=== PATIENT | male | born 1935 | race Caucasian/White ===

== ENCOUNTER 2017-07-23 10:14 | Emergency (ER) | payer MEDICARE, OTHER ==
[2017-07-23 10:21] VITALS: TEMP 98.4
[2017-07-23] MEDS ORDERED: DILTIAZEM 5 MG/ML SOL IV ONE ×2 (10:29)
[2017-07-23] MEDS ORDERED: ALUMINUM/MAGNESIUM 30 ML SUS ONE (10:45)
[2017-07-23] MEDS ORDERED: SODIUM CHLORIDE 0.9% 1000ML 1,000 ML IV SCH (10:45)
[2017-07-23] MEDS ORDERED: LIDOCAINE HCL 2% (VISCOUS) 20 ML SOL ONE (10:45)
[2017-07-23] MEDS ORDERED: ASPIRIN 81 MG CHEWABLE CTB ONE (10:46)
[2017-07-23] MEDS ORDERED: ASPIRIN 81 MG CHEWABLE CTB PO ONE (10:46)
[2017-07-23 10:50] LABS: BASOPHILS % (AUTO) 1 % (0-3); EOSINOPHILS % (AUTO) 2 % (0-9); HEMATOCRIT 39 % (39-53); MEAN CORPUSCULAR HGB CONC 31.9 gm/dl (32.0-36.0); MONOCYTES % (AUTO) 6.7 % (0-12); NEUTROPHILS % (AUTO) 75.6 % (37-80)
[2017-07-23 10:53] LABS: CALCIUM 8.8 mg/dl (8.5-10.1); MAGNESIUM 1.8 mg/dl (1.8-2.4); POTASSIUM 3.8 mMol/L (3.5-5.1)
[2017-07-23] MEDS ORDERED: LIDOCAINE HCL 2% (VISCOUS) 20 ML SOL MT ONE (10:53)
[2017-07-23] MEDS ORDERED: ALUMINUM/MAGNESIUM 30 ML SUS PO ONE (10:54)
[2017-07-23 11:14] LABS: MEAN CORPUSCULAR VOLUME 71 fL (80-100)
[2017-07-23 11:44] LABS: OVALOCYTES PRESENT
[2017-07-23] MEDS ORDERED: HEPARIN PREMIX 25,000 U/250 ML SOL IV PRN (14:33)
[2017-07-23] MEDS ORDERED: NITROGLYCERIN 5 MG/ML 50 MG in DEXTROSE 250 ML 250 ML IV PRN (14:34)
[2017-07-23] MEDS ORDERED: HEPARIN SODIUM 5000 U/ML SOL IV ONE (14:38)
[2017-07-23] MEDS ORDERED: HEPARIN SODIUM 5000 U/ML SOL ONE (14:39)
[2017-07-23 15:36] VITALS: RESP 19; O2SAT 97
[2017-07-23 15:37] VITALS: BP 123/75; PULSE 52
== END 2017-07-23 16:02 | disposition short-term general hospital (02) | DRG 313 ==
LOC: ED 10:14
DX: R07.9 Chest pain, unspecified (principal); I48.2 Chronic atrial fibrillation; R79.89 Other specified abnormal findings of blood chemistry; R06.02 Shortness of breath
CPT/HCPCS: 71010; 80048; 83735; 83880; 84484; 85025; 85610; 93005; 99285; J1644

== ENCOUNTER 2017-08-14 02:27 | Emergency (ER) | payer MEDICARE, OTHER ==
[2017-08-14] MEDS ORDERED: ASPIRIN 81 MG CHEWABLE CTB PO STA (02:30)
[2017-08-14] MEDS ORDERED: NITROGLYCERIN 0.4 MG TAB SL PRN (02:30)
[2017-08-14] MEDS ORDERED: ASPIRIN 81 MG CHEWABLE CTB ONE (02:31)
[2017-08-14] MEDS: SODIUM CHLORIDE 0.9% FLUSH 10 ML SOL IV PRN ×2 (02:40→03:34)
[2017-08-14 02:51] VITALS: TEMP 98
[2017-08-14 02:51] LABS: BASOPHILS % (AUTO) 1 % (0-3); EOSINOPHILS % (AUTO) 5 % (0-9); HEMATOCRIT 39 % (39-53); MEAN CORPUSCULAR HGB CONC 30.8 gm/dl (32.0-36.0); MONOCYTES % (AUTO) 8.8 % (0-12); NEUTROPHILS % (AUTO) 59.5 % (37-80)
[2017-08-14] MEDS ORDERED: DILTIAZEM 5 MG/ML SOL IV ONE ×2 (02:52→02:55)
[2017-08-14 02:57] LABS: MEAN CORPUSCULAR VOLUME 74 fL (80-100)
[2017-08-14 03:04] LABS: CALCIUM 9.4 mg/dl (8.5-10.1); GLOM FILT RATE 68 mL/min (>60); POTASSIUM 4.1 mMol/L (3.5-5.1); SODIUM 138 mMol/L (136-145)
[2017-08-14 03:09] LABS: ANISOCYTOSIS SLIGHT AMT; OVALOCYTES PRESENT; TARGET CELLS PRESENT
[2017-08-14] MEDS ORDERED: MORPHINE SULFATE 10 MG/ML SOL IV ONE (03:27)
[2017-08-14] MEDS ORDERED: MORPHINE SULFATE 10 MG/ML SOL ONE (03:28)
[2017-08-14] MEDS ORDERED: DILTIAZEM ER 120 MG C24 ONE (03:29)
[2017-08-14] MEDS ORDERED: DILTIAZEM ER 120 MG C24 PO ONE (03:31)
[2017-08-14 04:24] VITALS: BP 137/70; PULSE 111; RESP 18; O2SAT 95
[2017-08-14 14:41] LABS: ALBUMIN 3.9 gm/dl (3.4-5.0); BILIRUBIN,DIRECT 0.1 mg/dl (0.0-0.2)
== END 2017-08-14 04:48 | disposition home or self-care (01) | DRG 313 ==
LOC: ED 02:27
DX: R07.9 Chest pain, unspecified (principal); I48.91 Unspecified atrial fibrillation
CPT/HCPCS: 36415; 71010; 80048; 80076; 82550; 84484; 85025; 85610; 85730; 93005; 99285; J2270

== ENCOUNTER 2019-02-01 10:37 | Emergency (ER) | payer MEDICARE, OTHER ==
[2019-02-01 10:38] VITALS: O2SAT 95
[2019-02-01 10:53] VITALS: RESP 18; TEMP 96.3
[2019-02-01] MEDS ORDERED: CLONIDINE 0.1 MG TAB PO ONE (10:59)
[2019-02-01] MEDS ORDERED: CLONIDINE 0.1 MG TAB ONE (11:00)
[2019-02-01] MEDS ORDERED: PHENYLEPHRINE HCL 0.5% SPR NAS ONE (11:33)
[2019-02-01 11:56] VITALS: BP 131/70; PULSE 56
== END 2019-02-01 12:10 | disposition home or self-care (01) | DRG 151 ==
LOC: ED 10:37
DX: R04.0 Epistaxis (principal)
CPT/HCPCS: 30901; 99282; A6402; A9270-GY

== ENCOUNTER 2019-02-02 20:08 | Emergency (ER) | payer MEDICARE, OTHER ==
[2019-02-02 20:58] VITALS: BP 182/75; PULSE 68; RESP 20; TEMP 97.9; O2SAT 97
== END 2019-02-02 21:25 | disposition home or self-care (01) | DRG 151 ==
LOC: ED 20:08
DX: R04.0 Epistaxis (principal)
CPT/HCPCS: 30901; 99282

== ENCOUNTER 2019-02-02 23:14 | Emergency (ER) | payer MEDICARE, OTHER ==
[2019-02-02 23:14] VITALS: O2SAT 97
[2019-02-02 23:23] VITALS: RESP 20; TEMP 98.2
[2019-02-02 23:33] VITALS: BP 172/93; PULSE 71
== END 2019-02-03 00:09 | disposition home or self-care (01) | DRG 151 ==
LOC: ED 23:14
DX: R04.0 Epistaxis (principal)
CPT/HCPCS: 99282

== ENCOUNTER 2019-02-03 04:17 | Observation (INO) | payer MEDICARE, OTHER ==
[2019-02-03] MEDS ORDERED: NITROGLYCERIN 0.4 MG TAB SL PRN (04:53)
[2019-02-03] MEDS ORDERED: ALBUTEROL HFA 60 PUFF/INHALER INH PRN (04:53)
[2019-02-03] MEDS ORDERED: ACETAMINOPHEN 500 MG 500 MG TAB PO PRN (05:08)
[2019-02-03] MEDS ORDERED: OMEPRAZOLE 20 MG CAPSULE PO SCH (07:00)
[2019-02-03] MEDS: PANTOPRAZOLE SODIUM 40 MG ECT PO SCH ×2 (08:21→09:31)
[2019-02-03 08:50] LABS: BASOPHILS % (AUTO) 1 % (0-3); EOSINOPHILS % (AUTO) 2 % (0-9); HEMATOCRIT 36 % (39-53); HEMOGLOBIN 11.3 gm/dl (13.5-17.7); LYMPHOCYTES % (AUTO) 17.9 % (10-50); MEAN CORPUSCULAR HEMOGLOBIN 27.1 pg (27.0-32.0); MEAN CORPUSCULAR HGB CONC 31.7 gm/dl (32.0-36.0); MEAN CORPUSCULAR VOLUME 86 fL (80-100); MONOCYTES % (AUTO) 8.4 % (0-12); NEUTROPHILS % (AUTO) 70.9 % (37-80)
[2019-02-03] MEDS ORDERED: MULTIVITAMIN2 1 EA TAB PO SCH (09:00)
[2019-02-03] MEDS ORDERED: CARVEDILOL 3.125 MG TAB PO SCH (09:00)
[2019-02-03] MEDS ORDERED: SAW PALMETTO FRUIT 450 MG PO SCH (09:00)
[2019-02-03] MEDS ORDERED: TUMERIC PO SCH (09:00)
[2019-02-03] MEDS ORDERED: ASPIRIN EC 81 MG PO SCH (09:00)
[2019-02-03] MEDS ORDERED: AMLODIPINE 5 MG TAB PO SCH (09:00)
[2019-02-03] MEDS ORDERED: AMIODARONE 200 MG TAB PO SCH (09:00)
[2019-02-03 09:43] VITALS: TEMP 98.7
[2019-02-03] MEDS ORDERED: SODIUM CHLORIDE 0.9% 1000ML 1,000 ML IV SCH (10:15)
[2019-02-03 10:43] VITALS: BP 106/62; PULSE 64; RESP 20; O2SAT 98
[2019-02-03] MEDS ORDERED: MOMETASONE FUROATE 220 MCG INH SCH (21:00)
[2019-02-03] MEDS ORDERED: SIMVASTATIN 20 MG TAB PO SCH (21:00)
== END 2019-02-03 11:25 | disposition short-term general hospital (02) | DRG 151 ==
LOC: ED 04:17 → ACUTE CARE 04:50
PROVIDERS: ADMIT Family Medicine; ATTEND Family Medicine
DX: R04.0 Epistaxis (principal); R55 Syncope and collapse; Z79.01 Long term (current) use of anticoagulants
CPT/HCPCS: 30903; 36415; 85025; 93005; 94760; 99218; 99282; A9270-GY